=== PATIENT | female | born 1945 | race African-American/Black ===

== ENCOUNTER → 2017-03-05 | Outpatient (CLI) | payer OTHER ==
[~2017-03-05] VITALS: Ht 177.8 cm; Wt 69.4 kg
[~2017-03-05] MED LIST: AGGRENOX1 CAPSULE PO; ATIVAN1 MG PO; AVANDIA4 MG PO; CALCIUM ACETAT667 MG PO; DIALYVITE 801 TABLET PO; DIOVAN160 MG PO; LAMICTAL100 MG PO; LO-DOSE ASPIRIN81 M1 PO; MEGESTROL PO; NORMODYNE,TRAN200 MG PO; NORVASC5 MG PO; OGEN1.25 MG PO; PLAVIX75 MG PO; SENSIPAR30 MG PO; TIMOPTIC-0100 DROP/1 BOTH EYES; Tylenol Regular Stre PO; XALATAN 0.50 DROP/2.; ZYLOPRIM100 MG PO; Zocor PO
[2017-03-05 11:51] LABS: ANION GAP 14 MEQ/L (2-14); CHLORIDE 97 MEQ/L (99-109); GFR ESTIMATE (CALCULATED) 12 mL/min/; GLUCOSE 69 mg/dL (70-99); POTASSIUM 4.7 MEQ/L (3.7-5.4); SAMPLE HEMOLYSIS CHECK 1; SAMPLE ICTERIC CHECK 0; SAMPLE LIPEMIA CHECK 0; SODIUM 138 MEQ/L (136-147); UREA NITROGEN (BUN) 25 mg/dL (9-23)
[2017-03-05 11:59] LABS: HEMATOCRIT 35.6 % (36.0-46.0)
== END | disposition home or self-care (01) ==
LOC: AMB 09:55
PROVIDERS: Internal Medicine Gastroenterology
PROC: 0DJD8ZZ Inspection of Lower Intestinal Tract, Via Natural or Artificial Opening Endoscopic (ICD-10-PCS; principal; 2017-03-05)
DX: K92.1 Melena (principal); K57.30 Diverticulosis of large intestine without perforation or abscess without bleeding; Z53.09 Procedure and treatment not carried out because of other contraindication; D64.9 Anemia, unspecified; Z86.73 Personal history of transient ischemic attack (TIA), and cerebral infarction without residual deficits; N18.6 End stage renal disease; Z99.2 Dependence on renal dialysis; Z79.82 Long term (current) use of aspirin; Z79.02 Long term (current) use of antithrombotics/antiplatelets
CPT/HCPCS: 80048; 85014; 85018; 93005

== ENCOUNTER 2017-03-11 18:36 | Emergency (ER) | payer OTHER ==
[~2017-03-11] VITALS: Ht 177.8 cm; Wt 68.4 kg
[2017-03-11 19:47] LABS: BASOPHIL COUNT 0.1 K/uL (0-0.1); EOSINOPHIL (%) 4.2 % (0-5); EOSINOPHIL COUNT 0.4 K/uL (0-0.3); HEMATOCRIT 33.4 % (36.0-46.0); IMMATURE GRANULOCYTE (%) 1.2 % (0.0-0.7); IMMATURE GRANULOCYTE COUNT 0.1 K/uL; INSTRUMENT ABS NEUTROPHIL CT 5.4 K/uL; LYMPHOCYTE COUNT 2.2 K/uL (1.0-2.8); MCH 30.7 PG (29.0-34.0); MCHC 31.1 G/DL (30.0-36.0); MCV 98.5 FL (83-99); MONOCYTE (%) 9.6 % (3-12); MONOCYTE COUNT 0.9 K/uL (0-0.8); NEUTROPHIL (%) 59.9 % (45-76); NEUTROPHIL COUNT 5.4 K/uL (1.8-6.4); PLATELET COUNT 380 K/uL (156-360); RBC DIS.WIDTH-CV 16.1 % (11.8-14.6); RBC DIS.WIDTH-SD 57.5 % (39-53); RED BLOOD COUNT 3.39 M/uL (3.80-5.20)
[2017-03-11 19:55] LABS: CHLORIDE 97 mEq/L (99-109); POTASSIUM 3.8 mEq/L (3.7-5.4); SODIUM 137 mEq/L (136-147)
[2017-03-11 19:56] LABS: GLUCOSE 94 mg/dL (70-99)
[2017-03-11 19:58] LABS: ANION GAP 13 MEQ/L (2-14)
[2017-03-11 20:00] LABS: GFR ESTIMATE (CALCULATED) 15 mL/min/
[2017-03-11 20:01] LABS: UREA NITROGEN (BUN) 18 mg/dL (9-23)
[2017-03-11] MEDS ORDERED: AUGMENTIN875 MG PO (21:10)
[2017-03-11] MEDS ORDERED: NORCO 5/3251 TABLET PO (21:10)
[2017-03-11 21:45] VITALS: BP 136/93
== END 2017-03-11 21:58 | disposition home or self-care (01) ==
LOC: EME 18:36
PROVIDERS: Emergency Medicine
DX: R10.10 Upper abdominal pain, unspecified (principal); R10.30 Lower abdominal pain, unspecified; M54.9 Dorsalgia, unspecified; I12.0 Hypertensive chronic kidney disease with stage 5 chronic kidney disease or end stage renal disease; E11.22 Type 2 diabetes mellitus with diabetic chronic kidney disease; N18.6 End stage renal disease; Z99.2 Dependence on renal dialysis; K44.9 Diaphragmatic hernia without obstruction or gangrene; K57.30 Diverticulosis of large intestine without perforation or abscess without bleeding; Z90.710 Acquired absence of both cervix and uterus; Z90.49 Acquired absence of other specified parts of digestive tract; Z79.82 Long term (current) use of aspirin; F17.200 Nicotine dependence, unspecified, uncomplicated
CPT/HCPCS: 74176; 80048; 85025; 99281; 99284

== ENCOUNTER 2017-03-19 07:49 | Day surgery (SDC) | payer OTHER ==
[~2017-03-19] VITALS: Ht 177.8 cm; Wt 70.0 kg
[~2017-03-19 07:49] MED LIST changes: +AUGMENTIN875 MG PO; +NORCO 5/3251 TABLET PO
[2017-03-19 09:57] LABS: METH RESISTANT S AUREUS PCR NEGATIVE (NEGATIVE)
[2017-03-19 09:59] LABS: PROBE CHECK PASS; SPECIMEN PROCESSING CONTROL PASS
== END 2017-03-19 10:48 | disposition home or self-care (01) ==
LOC: CATH 07:49
PROVIDERS: Surgery
PROC: B51V1ZA Fluoroscopy of Other Veins using Low Osmolar Contrast, Guidance (ICD-10-PCS; principal; 2017-03-19)
DX: T82.41XA Breakdown (mechanical) of vascular dialysis catheter, initial encounter (principal); I12.0 Hypertensive chronic kidney disease with stage 5 chronic kidney disease or end stage renal disease; N18.6 End stage renal disease; Z99.2 Dependence on renal dialysis; E78.00 Pure hypercholesterolemia, unspecified; I65.23 Occlusion and stenosis of bilateral carotid arteries; Z86.73 Personal history of transient ischemic attack (TIA), and cerebral infarction without residual deficits; Z85.41 Personal history of malignant neoplasm of cervix uteri; Z79.02 Long term (current) use of antithrombotics/antiplatelets; Z79.82 Long term (current) use of aspirin
CPT/HCPCS: 87641; C1769; C1894; J1644; J2250; J3010

== ENCOUNTER 2017-03-24 07:16 | Day surgery (SDC) | payer OTHER ==
[~2017-03-24] VITALS: Ht 177.8 cm; Wt 70.0 kg
[2017-03-24] MEDS ORDERED: PLAVIX75 MG PO (07:58)
[2017-03-24 09:22] LABS: METH RESISTANT S AUREUS PCR NEGATIVE (NEGATIVE)
[2017-03-24 09:24] LABS: PROBE CHECK PASS; SPECIMEN PROCESSING CONTROL PASS
== END 2017-03-24 10:31 | disposition home or self-care (01) ==
LOC: CATH 07:16
PROVIDERS: Surgery
DX: T82.514A Breakdown (mechanical) of infusion catheter, initial encounter (principal); I73.9 Peripheral vascular disease, unspecified; Z79.82 Long term (current) use of aspirin; Z79.02 Long term (current) use of antithrombotics/antiplatelets
CPT/HCPCS: 87641; C1751; C1769; C1894; J0690; J1644; J2250; J3010; S0020

== ENCOUNTER 2017-04-08 06:40 | Emergency (ER) | payer OTHER ==
[~2017-04-08] VITALS: Ht 177.8 cm; Wt 68.3 kg
[2017-04-08 07:23] LABS: EOSINOPHIL (%) 5.5 % (0-5); EOSINOPHIL COUNT 0.4 K/uL (0-0.3); HEMATOCRIT 26.6 % (36.0-46.0); IMMATURE GRANULOCYTE (%) 0.9 % (0.0-0.7); IMMATURE GRANULOCYTE COUNT 0.1 K/uL; INSTRUMENT ABS NEUTROPHIL CT 5.1 K/uL; LYMPHOCYTE COUNT 1.6 K/uL (1.0-2.8); MCH 32.4 PG (29.0-34.0); MCHC 30.5 G/DL (30.0-36.0); MEAN PLAT.VOLUME 9.4 uM^3 (9.5-12.4); MONOCYTE (%) 7.6 % (3-12); MONOCYTE COUNT 0.6 K/uL (0-0.8); NEUTROPHIL (%) 64.9 % (45-76); NEUTROPHIL COUNT 5.1 K/uL (1.8-6.4); PLATELET COUNT 323 K/uL (156-360); RBC DIS.WIDTH-CV 19.3 % (11.8-14.6); RBC DIS.WIDTH-SD 75.2 % (39-53); WHITE BLOOD COUNT 7.8 K/uL (4.1-10.2)
[2017-04-08 07:24] LABS: MCV 106.4 FL (83-99)
[2017-04-08 07:28] LABS: PROTHROMBIN TIME 11.6 SEC (10.2-12.9)
[2017-04-08 07:31] LABS: PTT 30.4 SEC (25-37)
[2017-04-08 07:48] LABS: ANION GAP 12 MEQ/L (2-14); CHLORIDE 101 MEQ/L (99-109); GFR ESTIMATE (CALCULATED) 9 mL/min/; GLUCOSE 94 mg/dL (70-99); POTASSIUM 4.8 MEQ/L (3.7-5.4); SAMPLE HEMOLYSIS CHECK 0; SAMPLE ICTERIC CHECK 0; SAMPLE LIPEMIA CHECK 0; SODIUM 141 MEQ/L (136-147); UREA NITROGEN (BUN) 38 mg/dL (9-23)
[2017-04-08 07:49] LABS: TROP-I INTERPRETATION NEGATIVE; TROPONIN-I 0.03 ng/mL (0.0-0.30)
[2017-04-08 10:51] LABS: TROP-I INTERPRETATION NEGATIVE; TROPONIN-I 0.02 ng/mL (0.0-0.30)
[2017-04-08 11:53] VITALS: BP 98/45
== END 2017-04-08 11:55 | disposition home or self-care (01) ==
LOC: EME 06:40
PROVIDERS: Emergency Medicine
DX: R07.89 Other chest pain (principal); E11.22 Type 2 diabetes mellitus with diabetic chronic kidney disease; N18.9 Chronic kidney disease, unspecified; Z99.2 Dependence on renal dialysis; E78.5 Hyperlipidemia, unspecified; K21.9 Gastro-esophageal reflux disease without esophagitis; Z85.9 Personal history of malignant neoplasm, unspecified; F17.200 Nicotine dependence, unspecified, uncomplicated; Z86.73 Personal history of transient ischemic attack (TIA), and cerebral infarction without residual deficits; Z90.49 Acquired absence of other specified parts of digestive tract; Z79.02 Long term (current) use of antithrombotics/antiplatelets; Z79.82 Long term (current) use of aspirin; Z91.040 Latex allergy status
CPT/HCPCS: 71010; 80048; 84484; 85025; 85610; 85730; 93005; 99281; 99285

== ENCOUNTER 2017-04-20 07:10 | Inpatient (IN) | payer OTHER ==
[2017-04-20] VITALS (8 sets, daily range): BP systolic 125–161; BP diastolic 50–75
[~2017-04-20] VITALS: Ht 177.8 cm; Wt 69.4 kg
[2017-04-20 09:53] LABS: CHLORIDE 105 mEq/L (99-109); POTASSIUM 4.6 mEq/L (3.7-5.4); SODIUM 141 mEq/L (136-147)
[2017-04-20 09:54] LABS: GLUCOSE 84 mg/dL (70-99)
[2017-04-20 09:58] LABS: CREATININE 5.8 mg/dL (0.6-1.3); GFR ESTIMATE (CALCULATED) 9 mL/min/
[2017-04-20 09:59] LABS: UREA NITROGEN (BUN) 67 mg/dL (9-23)
[2017-04-20 10:01] LABS: TROP-I INTERPRETATION NEGATIVE; TROPONIN-I < 0.01 ng/mL (0.0-0.30)
[2017-04-20 10:14] LABS: HEMATOCRIT 21.6 % (36.0-46.0); HEMOGLOBIN 6.3 G/DL (11.9-15.5); MCH 31.3 PG (29.0-34.0); MCHC 29.2 G/DL (30.0-36.0); MCV 107.5 FL (83-99); NRBC (%) 0.2 /100 WBC (0-0); RBC DIS.WIDTH-CV 19.5 % (11.8-14.6); RBC DIS.WIDTH-SD 77.3 % (39-53); RED BLOOD COUNT 2.01 M/uL (3.80-5.20); WHITE BLOOD COUNT 8.7 K/uL (4.1-10.2)
[2017-04-20 10:33] LABS: BASOPHIL (%) 0.4 % (0-1); EOSINOPHIL (%) 4.6 % (0-5); EOSINOPHIL COUNT 0.4 K/uL (0-0.3); IMMATURE GRANULOCYTE (%) 1.8 % (0.0-0.7); LYMPHOCYTE (%) 23.7 % (15-42); MONOCYTE (%) 6.4 % (3-12); MONOCYTE COUNT 0.5 K/uL (0-0.8); NEUTROPHIL (%) 63.1 % (45-76); NEUTROPHIL COUNT 5.3 K/uL (1.8-6.4)
[2017-04-20 10:34] LABS: INTER. NORMALIZED RATIO ND
[2017-04-20 11:00] LABS: PLAT.SUFFICIENCY ADEQUATE; PLATELET COUNT 227 K/uL (156-360)
[2017-04-20 12:02] LABS: INTER. NORMALIZED RATIO 1.5
[2017-04-20 22:13] LABS: ABSOLUTE RETICULOCYTE CT. 0.3 M/uL (0.02-0.08); IMM.RETIC FRACTION 33.6 % (3-19); MCV 100.8 FL (83-99); RETIC HGB EQUIVALENT 31.1 (28-36); RETICULOCYTE COUNT 11.5 % (0.5-1.8)
[2017-04-21 06:21] LABS: HEMATOCRIT 24.4 % (36.0-46.0); HEMOGLOBIN 7.8 G/DL (11.9-15.5); MCH 32.1 PG (29.0-34.0); MCV 100.4 FL (83-99); PLATELET COUNT 218 K/uL (156-360); RBC DIS.WIDTH-CV 20.4 % (11.8-14.6); RBC DIS.WIDTH-SD 72.6 % (39-53); WHITE BLOOD COUNT 7.6 K/uL (4.1-10.2)
[2017-04-21 06:28] LABS: RED BLOOD COUNT 2.43 M/uL (3.80-5.20)
[2017-04-21 06:31] LABS: BASOPHIL (%) 0.7 % (0-1); BASOPHIL COUNT 0.1 K/uL (0-0.1); EOSINOPHIL (%) 5.3 % (0-5); EOSINOPHIL COUNT 0.4 K/uL (0-0.3); IMMATURE GRANULOCYTE (%) 1.5 % (0.0-0.7); LYMPHOCYTE (%) 17.9 % (15-42); LYMPHOCYTE COUNT 1.4 K/uL (1.0-2.8); MONOCYTE (%) 7.9 % (3-12); MONOCYTE COUNT 0.6 K/uL (0-0.8); NEUTROPHIL (%) 66.7 % (45-76); NEUTROPHIL COUNT 5.1 K/uL (1.8-6.4)
[2017-04-21 06:47] LABS: CHLORIDE 108 MEQ/L (99-109); CREATININE 6.3 MG/DL (0.6-1.3); GFR ESTIMATE (CALCULATED) 8 mL/min/; GLUCOSE 86 mg/dL (70-99); PHOSPHORUS 5.7 mg/dL (2.5-4.9); SODIUM 143 MEQ/L (136-147); UREA NITROGEN (BUN) 70 mg/dL (9-23)
[2017-04-21 06:50] VITALS: BP 129/65
[2017-04-21 12:20] LABS: HEPATITIS B SURFACE ANTIGEN Nonreactive
[2017-04-21 12:26] LABS: HEPATITIS B SURFACE ANTIBODY REACTIVE
[2017-04-21 12:29] VITALS: BP 135/70; BP 35/70
[2017-04-21 15:10] VITALS: BP 150/55
[2017-04-21 20:18] LABS: HEMATOCRIT 34.4 % (36.0-46.0)
[2017-04-21 20:19] LABS: HEMOGLOBIN 11.2 G/DL (11.9-15.5); MCV 94.5 FL (83-99)
[2017-04-22 00:03] VITALS: BP 134/71
[2017-04-22 07:27] VITALS: BP 123/63
[2017-04-22 08:41] LABS: CHLORIDE 106 MEQ/L (99-109); POTASSIUM 4.1 MEQ/L (3.7-5.4); SODIUM 143 MEQ/L (136-147)
[2017-04-22 08:46] LABS: GFR ESTIMATE (CALCULATED) 13 mL/min/; GLUCOSE 89 mg/dL (70-99)
[2017-04-22 09:08] LABS: CREATININE 4.3 MG/DL (0.6-1.3); UREA NITROGEN (BUN) 29 mg/dL (9-23)
[2017-04-22 09:11] LABS: HEMATOCRIT 34.6 % (36.0-46.0); HEMOGLOBIN 11.3 G/DL (11.9-15.5); MCH 31.3 PG (29.0-34.0); MCHC 32.7 G/DL (30.0-36.0); MCV 95.8 FL (83-99); PLATELET COUNT 227 K/uL (156-360); RBC DIS.WIDTH-SD 67.9 % (39-53); WHITE BLOOD COUNT 7.4 K/uL (4.1-10.2)
[2017-04-22 09:42] LABS: RED BLOOD COUNT 3.61 M/uL (3.80-5.20)
[2017-04-22 09:47] LABS: HEMATOCRIT 34.6 % (36.0-46.0); HEMOGLOBIN 11.3 G/DL (11.9-15.5); MCV 95.8 FL (83-99)
[2017-04-22 11:40] VITALS: BP 117/71
[2017-04-22 16:15] VITALS: BP 100/72
[2017-04-22 20:10] VITALS: BP 129/69
[2017-04-22 20:36] VITALS: BP 125/67
[2017-04-22 20:55] LABS: HEMATOCRIT 38.5 % (36.0-46.0); HEMOGLOBIN 12.4 G/DL (11.9-15.5); MCV 96.7 FL (83-99)
[2017-04-23 00:12] VITALS: BP 126/80
[2017-04-23 07:19] LABS: BASOPHIL (%) 0.8 % (0-1); BASOPHIL COUNT 0.1 K/uL (0-0.1); EOSINOPHIL (%) 4.5 % (0-5); EOSINOPHIL COUNT 0.3 K/uL (0-0.3); HEMATOCRIT 39.3 % (36.0-46.0); HEMOGLOBIN 12.4 G/DL (11.9-15.5); IMMATURE GRANULOCYTE (%) 0.9 % (0.0-0.7); LYMPHOCYTE (%) 21.3 % (15-42); LYMPHOCYTE COUNT 1.4 K/uL (1.0-2.8); MCH 30.5 PG (29.0-34.0); MCHC 31.6 G/DL (30.0-36.0); MCV 96.8 FL (83-99); MONOCYTE (%) 14.2 % (3-12); MONOCYTE COUNT 0.9 K/uL (0-0.8); NEUTROPHIL (%) 58.3 % (45-76); NEUTROPHIL COUNT 3.9 K/uL (1.8-6.4); PLATELET COUNT 232 K/uL (156-360); RBC DIS.WIDTH-CV 18.8 % (11.8-14.6); RBC DIS.WIDTH-SD 65.8 % (39-53); RED BLOOD COUNT 4.06 M/uL (3.80-5.20); WHITE BLOOD COUNT 6.6 K/uL (4.1-10.2)
[2017-04-23 07:20] LABS: CHLORIDE 100 MEQ/L (99-109); CREATININE 4.5 MG/DL (0.6-1.3); GFR ESTIMATE (CALCULATED) 12 mL/min/; GLUCOSE 89 mg/dL (70-99); POTASSIUM 4.1 MEQ/L (3.7-5.4); SODIUM 139 MEQ/L (136-147); UREA NITROGEN (BUN) 25 mg/dL (9-23)
[2017-04-23 07:48] VITALS: BP 144/72
[2017-04-23] MEDS ORDERED: AMLODIPINE BESYL5 MG PO (14:08)
[2017-04-23] MEDS ORDERED: PROTONIX40 MG PO (14:09)
== END 2017-04-23 15:14 | disposition home or self-care (01) | DRG 377 ==
LOC: EME 07:10 → 5EAST 11:52 → EDOF 11:52 → CANRESERV 11:57 → ENRESERV 11:57 → EDOF 11:59 → ENRESERV 14:10 → 5EAST 15:22
PROVIDERS: Emergency Medicine; Hospitalist; Internal Medicine Gastroenterology; Internal Medicine Nephrology
PROC: 30233N1 Transfusion of Nonautologous Red Blood Cells into Peripheral Vein, Percutaneous Approach (ICD-10-PCS; principal; 2017-04-20)
PROC: 5A1D70Z Performance of Urinary Filtration, Intermittent, Less than 6 Hours Per Day (ICD-10-PCS; 2017-04-21)
PROC: 0DJ08ZZ Inspection of Upper Intestinal Tract, Via Natural or Artificial Opening Endoscopic (ICD-10-PCS; 2017-04-21)
PROC: 5A1D70Z Performance of Urinary Filtration, Intermittent, Less than 6 Hours Per Day (ICD-10-PCS; 2017-04-22)
DX: K92.2 Gastrointestinal hemorrhage, unspecified (principal); D62 Acute posthemorrhagic anemia; I12.0 Hypertensive chronic kidney disease with stage 5 chronic kidney disease or end stage renal disease; N18.6 End stage renal disease; K31.819 Angiodysplasia of stomach and duodenum without bleeding; K55.20 Angiodysplasia of colon without hemorrhage; K57.30 Diverticulosis of large intestine without perforation or abscess without bleeding; Z79.02 Long term (current) use of antithrombotics/antiplatelets; D63.1 Anemia in chronic kidney disease; Z99.2 Dependence on renal dialysis; F17.200 Nicotine dependence, unspecified, uncomplicated; E78.5 Hyperlipidemia, unspecified; H40.9 Unspecified glaucoma; K21.9 Gastro-esophageal reflux disease without esophagitis; Z79.82 Long term (current) use of aspirin; Z85.41 Personal history of malignant neoplasm of cervix uteri; Z86.73 Personal history of transient ischemic attack (TIA), and cerebral infarction without residual deficits; Z90.710 Acquired absence of both cervix and uterus
CPT/HCPCS: 70450; 71045; 74250; 80048; 80069; 82247; 82948; 83010 90; 84484; 85014; 85018; 85025; 85027; 85610; 85730; 86706; 86850; 86900; 86901; 86920; 87340; 90686; 93005; 99281; 99285; C9113; G0378; J0881; P9016

== ENCOUNTER 2017-06-04 08:39 | Emergency (ER) | payer OTHER ==
[~2017-06-04] VITALS: Ht 175.3 cm; Wt 66.5 kg
[~2017-06-04 08:39] MED LIST changes: +AMLODIPINE BESYL5 MG PO; +PROTONIX40 MG PO
[2017-06-04 11:18] LABS: HEMATOCRIT 42.2 % (36.0-46.0); HEMOGLOBIN 13.3 G/DL (11.9-15.5); MCH 28.9 PG (29.0-34.0); MCHC 31.5 G/DL (30.0-36.0); MCV 91.7 FL (83-99); PLATELET COUNT 261 K/uL (156-360); RBC DIS.WIDTH-CV 16.8 % (11.8-14.6); RBC DIS.WIDTH-SD 55.7 % (39-53); WHITE BLOOD COUNT 7.1 K/uL (4.1-10.2)
[2017-06-04 11:25] LABS: INTER. NORMALIZED RATIO 1.1
[2017-06-04 11:26] LABS: ALBUMIN 4.5 g/dL (3.2-4.8); CHLORIDE 94 mEq/L (99-109); POTASSIUM 4.2 mEq/L (3.7-5.4); SODIUM 135 mEq/L (136-147)
[2017-06-04 11:28] LABS: PTT 32.3 SEC (25-37)
[2017-06-04 11:29] LABS: GLUCOSE 107 mg/dL (70-99); TOTAL PROTEIN 7.2 g/dL (6.4-8.3)
[2017-06-04 11:31] LABS: TOTAL BILIRUBIN 0.6 mg/dL (0.0-1.0)
[2017-06-04 11:32] LABS: ALKALINE PHOSPHATASE 104 IU/L (3-129); CREATININE 4.8 mg/dL (0.6-1.3); GFR ESTIMATE (CALCULATED) 11 mL/min/
[2017-06-04 11:34] LABS: AST (GOT) 22 IU/L (2-34); UREA NITROGEN (BUN) 18 mg/dL (9-23)
[2017-06-04 11:35] LABS: ALT (GPT) 11 IU/L (3-49)
[2017-06-04 15:41] VITALS: BP 118/61
== END 2017-06-04 15:41 | disposition home or self-care (01) ==
LOC: EME 08:39
PROVIDERS: Nurse Practitioner Family
DX: R20.2 Paresthesia of skin (principal); I69.351 Hemiplegia and hemiparesis following cerebral infarction affecting right dominant side; I12.0 Hypertensive chronic kidney disease with stage 5 chronic kidney disease or end stage renal disease; N18.6 End stage renal disease; Z99.2 Dependence on renal dialysis; I71.4 Abdominal aortic aneurysm, without rupture; E78.5 Hyperlipidemia, unspecified; F17.200 Nicotine dependence, unspecified, uncomplicated; K21.9 Gastro-esophageal reflux disease without esophagitis; F32.9 Major depressive disorder, single episode, unspecified; F41.9 Anxiety disorder, unspecified; Z85.41 Personal history of malignant neoplasm of cervix uteri; H40.9 Unspecified glaucoma
CPT/HCPCS: 70450; 71046; 72148; 80053; 85027; 85610; 85730; 99281; 99284

== ENCOUNTER 2017-07-13 05:42 | Inpatient (IN) | payer OTHER ==
[~2017-07-13] VITALS: Ht 172.7 cm; Wt 74.0 kg
[2017-07-13 06:29] LABS: BASOPHIL (%) 0.2 % (0-1); EOSINOPHIL (%) 1.5 % (0-5); EOSINOPHIL COUNT 0.2 K/uL (0-0.3); HEMATOCRIT 32.2 % (36.0-46.0); HEMOGLOBIN 10.3 G/DL (11.9-15.5); IMMATURE GRANULOCYTE (%) 0.7 % (0.0-0.7); LYMPHOCYTE COUNT 1.5 K/uL (1.0-2.8); MCH 29.1 PG (29.0-34.0); MONOCYTE (%) 6.7 % (3-12); MONOCYTE COUNT 1.1 K/uL (0-0.8); NEUTROPHIL (%) 81.9 % (45-76); NEUTROPHIL COUNT 13.5 K/uL (1.8-6.4); PLATELET COUNT 258 K/uL (156-360); RBC DIS.WIDTH-CV 18.3 % (11.8-14.6); RBC DIS.WIDTH-SD 60.7 % (39-53); RED BLOOD COUNT 3.54 M/uL (3.80-5.20); WHITE BLOOD COUNT 16.5 K/uL (4.1-10.2)
[2017-07-13 06:39] LABS: CHLORIDE 101 mEq/L (99-109); POTASSIUM 4.6 mEq/L (3.7-5.4); SODIUM 140 mEq/L (136-147)
[2017-07-13 06:41] LABS: GLUCOSE 93 mg/dL (70-99)
[2017-07-13 06:45] LABS: CREATININE 6.4 mg/dL (0.6-1.3); GFR ESTIMATE (CALCULATED) 8 mL/min/
[2017-07-13 06:46] LABS: UREA NITROGEN (BUN) 51 mg/dL (9-23)
[2017-07-13 10:35] LABS: TROP-I INTERPRETATION NEGATIVE; TROPONIN-I 0.02 ng/mL (0.0-0.30)
[2017-07-13] MEDS ORDERED: NORVASC10 MG PO (10:53)
[2017-07-13] MEDS ORDERED: FERRIC CITRATE210 MG PO (10:54)
[2017-07-13] MEDS ORDERED: LABETALOL HCL200 MG PO (10:57)
[2017-07-13 11:18] VITALS: BP 139/67
[2017-07-13 16:42] VITALS: BP 165/73
[2017-07-13 17:52] LABS: TROP-I INTERPRETATION NEGATIVE; TROPONIN-I 0.02 ng/mL (0.0-0.30)
[2017-07-13 20:20] VITALS: BP 149/75
[2017-07-13 22:22] LABS: TROP-I INTERPRETATION NEGATIVE; TROPONIN-I 0.02 ng/mL (0.0-0.30)
[2017-07-13 23:59] VITALS: BP 145/61
[2017-07-14 04:13] VITALS: BP 129/71
[2017-07-14 05:35] LABS: HEMOGLOBIN 9.8 G/DL (11.9-15.5); MCH 28.4 PG (29.0-34.0); MCHC 31.6 G/DL (30.0-36.0); MCV 89.9 FL (83-99); PLATELET COUNT 279 K/uL (156-360); RBC DIS.WIDTH-CV 17.7 % (11.8-14.6); RBC DIS.WIDTH-SD 58.8 % (39-53); RED BLOOD COUNT 3.45 M/uL (3.80-5.20); WHITE BLOOD COUNT 15.3 K/uL (4.1-10.2)
[2017-07-14 06:55] LABS: CHLORIDE 96 MEQ/L (99-109); CREATININE 4.2 MG/DL (0.6-1.3); GFR ESTIMATE (CALCULATED) 13 mL/min/; GLUCOSE 174 mg/dL (70-99); POTASSIUM 4.8 MEQ/L (3.7-5.4); SODIUM 137 MEQ/L (136-147); UREA NITROGEN (BUN) 29 mg/dL (9-23)
[2017-07-14 07:36] VITALS: BP 120/59
[2017-07-14 10:06] LABS: ALBUMIN 3.9 G/DL (3.2-4.8); ALKALINE PHOSPHATASE 119 IU/L (3-129); ALT (GPT) 21 IU/L (3-49); AST (GOT) 23 IU/L (2-34); DIRECT BILIRUBIN 0.1 mg/dL (0.0-0.3); TOTAL BILIRUBIN 0.3 MG/DL (0.0-1.0); TOTAL PROTEIN 6.8 G/DL (6.4-8.3)
[2017-07-14 11:26] VITALS: BP 133/59
[2017-07-14 16:01] LABS: APPEARANCE CLOUDY ((CLEAR)); BILIRUBIN NEGATIVE; BLOOD NEGATIVE; COLOR AMBER ((YELLOW)); GLUCOSE (STRIP) NEGATIVE; KETONES NEGATIVE; LEUKOCYTES TRACE; NITRITE NEGATIVE; PROTEIN (STRIP) 100; SPECIFIC GRAVITY 1.018 (1.000-1.030); UROBILINOGEN 0.2 MG/DL (0.2-1.0)
[2017-07-14 17:00] VITALS: BP 122/59
[2017-07-14 18:23] LABS: RED BLOOD CELLS 0-5 /HPF (0-5)
[2017-07-14 18:25] LABS: BACTERIA 4+ /HPF; EPITHELIAL CELLS 4+ /HPF; WHITE BLOOD CELLS 0-5 /HPF (0-5)
[2017-07-14 18:31] LABS: MUCUS 2+ /LPF
[2017-07-14 19:54] VITALS: BP 120/58
[2017-07-14 23:15] VITALS: BP 121/59
[2017-07-15 04:43] VITALS: BP 123/59
[2017-07-15 08:28] VITALS: BP 114/55
[2017-07-15 13:08] LABS: TROP-I INTERPRETATION NEGATIVE; TROPONIN-I 0.03 ng/mL (0.0-0.30)
[2017-07-15 15:43] VITALS: BP 137/67
[2017-07-15 19:28] VITALS: BP 155/70
[2017-07-15 23:26] VITALS: BP 129/60
[2017-07-16 03:49] VITALS: BP 118/64
[2017-07-16 05:50] LABS: HEMOGLOBIN 9.1 G/DL (11.9-15.5); MCH 27.9 PG (29.0-34.0); MCHC 31.4 G/DL (30.0-36.0); NRBC (%) 0.2 /100 WBC (0-0); PLATELET COUNT 328 K/uL (156-360); RBC DIS.WIDTH-CV 17.8 % (11.8-14.6); RBC DIS.WIDTH-SD 58.4 % (39-53); RED BLOOD COUNT 3.26 M/uL (3.80-5.20); WHITE BLOOD COUNT 18.2 K/uL (4.1-10.2)
[2017-07-16 06:29] LABS: CHLORIDE 97 MEQ/L (99-109); SODIUM 138 MEQ/L (136-147)
[2017-07-16 06:35] LABS: CREATININE 5.4 MG/DL (0.6-1.3); GFR ESTIMATE (CALCULATED) 10 mL/min/; GLUCOSE 104 mg/dL (70-99); POTASSIUM 3.8 MEQ/L (3.7-5.4); UREA NITROGEN (BUN) 53 mg/dL (9-23)
[2017-07-16 07:01] LABS: ABS NEUTROPHIL COUNT 14.4; ANISOCYTOSIS 2+; ATYPICAL LYMPHOCYTE 7.3 %; BAND NEUTROPHILS 3.6 % (0-8.0); BASOPHILS 0.9 %; EOSINOPHIL ABS CT 0; LYMPHOCYTES 6.4 % (15.0-45.0); MACROCYTES 1+; METAMYELOCYTES 0.9 %; MONOCYTES 3.6 % (0-9.0); MYELOCYTES 1.8 %; PLAT.SUFFICIENCY INCREASED; SEG.NEUTROPHILS 75.5 % (46.0-76.0); TARGET CELLS 1+
[2017-07-16 08:04] VITALS: BP 144/67
[2017-07-16 11:32] VITALS: BP 127/65
[2017-07-16] MEDS ORDERED: ADVAIR HFA120 INHALA IH (12:22)
[2017-07-16] MEDS ORDERED: STIOLTO RESPIMAT4 GM IH (12:22)
[2017-07-16] MEDS ORDERED: PREDNISONE10 MG PO (12:22)
[2017-07-16] MEDS ORDERED: AMLODIPINE BESYL5 MG PO (12:22)
[2017-07-16] MEDS ORDERED: CEFDINIR300 MG PO (12:22)
[2017-07-16] MEDS ORDERED: NICOTINE PATCH1 EAC2 TD (12:22)
[2017-07-16] MEDS ORDERED: VENTOLIN HFA18 GM IH (12:22)
[2017-07-16] MEDS ORDERED: LABETALOL HCL100 MG PO (12:22)
[2017-07-16 15:40] VITALS: BP 130/72
== END 2017-07-16 17:39 | disposition home or self-care (01) | DRG 190 ==
LOC: EME 05:42 → EDOF 07:57 → 3EAST 07:57 → ENRESERV 08:00 → 3EAST 11:07
PROVIDERS: Emergency Medicine; Internal Medicine; Internal Medicine Nephrology; Physician Assistant
PROC: 5A1D70Z Performance of Urinary Filtration, Intermittent, Less than 6 Hours Per Day (ICD-10-PCS; principal; 2017-07-13)
DX: J44.1 Chronic obstructive pulmonary disease with (acute) exacerbation (principal); J96.01 Acute respiratory failure with hypoxia; I95.3 Hypotension of hemodialysis; Y84.1 Kidney dialysis as the cause of abnormal reaction of the patient, or of later complication, without mention of misadventure at the time of the procedure; I12.0 Hypertensive chronic kidney disease with stage 5 chronic kidney disease or end stage renal disease; N18.6 End stage renal disease; Z99.2 Dependence on renal dialysis; D72.829 Elevated white blood cell count, unspecified; D63.1 Anemia in chronic kidney disease; I65.29 Occlusion and stenosis of unspecified carotid artery; E78.5 Hyperlipidemia, unspecified; K21.9 Gastro-esophageal reflux disease without esophagitis; H40.9 Unspecified glaucoma; F32.9 Major depressive disorder, single episode, unspecified; F41.9 Anxiety disorder, unspecified; F17.200 Nicotine dependence, unspecified, uncomplicated; Z71.6 Tobacco abuse counseling; Z86.73 Personal history of transient ischemic attack (TIA), and cerebral infarction without residual deficits; Z85.41 Personal history of malignant neoplasm of cervix uteri; Z79.02 Long term (current) use of antithrombotics/antiplatelets
CPT/HCPCS: 71045; 80048; 80076; 81003; 84484; 85025; 85027; 93005; 93306; 94640; 94640 76; 94799; 99202; 99281; 99285; J1644; J2270; J2930; J7512